=== PATIENT | female | born 1985 | race Caucasian/White ===

== ENCOUNTER 2021-06-13 10:16 | Outpatient (CLI) | payer OTHER, SELFPAY ==
--- NOTE | ~2021-06-13 | XR_ITS ---
EXAMINATION: XR chest 2V DATE: 06/13/2021 10:31 INDICATION: Intermittent dyspnea. TECHNIQUE: Frontal and lateral views of the chest were obtained. COMPARISON: Chest 2 views 02/10/2006 FINDINGS: The chest demonstrates clear lungs without pneumonia, pleural effusion, or pneumothorax. Th e heart size is normal. IMPRESSION: 1. No acute cardiopulmonary disease. Reviewed, dictated and finalized at location A. 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
--- NOTE | 2021-06-14 15:37 | WPDPFTINT ---
PFT Procedure Performed PFT Procedure Performed Spirometry with Pre/Post Bronchodilator Plethysmography (Lung Vol) Diffusing Cap (DLCO) Flow Vol Loop PFT Interpretation Lung volumes were measured with the body plethysmography method. Lung volumes are unremarkable. Spirometry shows normal expiratory flow rates and a normal FEV1 to FVC ratio 76%. Following administration of a bronchodilator there was no significant increase in expiratory flow rates. Lung diffusion capacity is within the normal range at 90% predicted. The flow volume loop is unremarkable. Impression: Spirometry, lung volumes, and lung diffusion capacity all within the normal range.
== END 2021-06-13 10:17 | disposition home or self-care (01) ==
LOC: ANHPFT 10:21
PROVIDERS: PCP Family Medicine; Visit Provider Family Medicine
DX: R06.00 Dyspnea, unspecified (principal); R06.02 Shortness of breath
CPT/HCPCS: 71046; 94060; 94726; 94729

== ENCOUNTER 2023-08-31 22:50 | Emergency (ER) | payer OTHER, SELFPAY ==
[2023-08-31 22:56] VITALS: BP 133/95; PULSE 78; RESP 14; TEMP 36.5; O2SAT 98
--- NOTE | 2023-08-31 23:57 | PC.NURSE ---
Pt approached triage desk and states she is going to leave. pt educated of risks of leaving before seeing provider, verbalized understanding. Pt ambulated out of ED with steady gait in no obvious distress.
== END 2023-09-01 01:34 | disposition left against medical advice (07) ==
LOC: ANHED 09-01 00:56
PROVIDERS: PCP Internal Medicine
DX: R51.9 Headache, unspecified (principal)
CPT/HCPCS: 99199

== ENCOUNTER 2023-09-07 14:35 | Outpatient (CLI) | payer OTHER, SELFPAY ==
--- NOTE | ~2023-09-07 | MR_ITS ---
EXAMINATION: MR brain/brain stem wo/w con DATE: 09/07/2023 15:28 INDICATION: Worsening headache. TECHNIQUE: Magnetic resonance imaging (MRI) of the brain and brainstem was performed without and with 18 mL MultiHance intravenous contrast. COMPARISON: None. FINDINGS: There is no intracranial hemorrhage, acute infarction, or abnormal intracranial mass lesion . The ventricles are normal in size. There is mild mucosal thickening in the paranasal sinuses. There are mucous retention cysts in the maxillary sinuses. The mastoid air cells are normal. The orbits ar e normal. IMPRESSION: 1. Normal brain. Reviewed, dictated and finalized at location A. IMPRESSION: 1. Normal brain.
== END 2023-09-07 14:36 ==
PROVIDERS: PCP Clinical Nurse Specialist; Visit Provider Clinical Nurse Specialist
DX: R51.9 Headache, unspecified (principal)
CPT/HCPCS: 70553; A9577

== ENCOUNTER 2023-12-25 18:07 | Emergency (ER) | payer OTHER, SELFPAY ==
[2023-12-25 18:08] VITALS: BP 106/81; PULSE 92; RESP 16; TEMP 36.6; O2SAT 100
[2023-12-25 19:43] LABS: Basophils Absolute Auto 0.1 K/mm3 (0.0-0.1); Basophils Percent Auto 0.6 % (0.2-1.2); Eosinophils Absolute Auto 0.3 K/mm3 (0-0.3); Hematocrit 42.4 % (37.0-47.0); Hemoglobin 13.9 g/dL (12.0-15.0); Immature Granulocyte Absolute 0.02 K/mm3 (0.00-0.031); Immature Granulocyte Percent A 0.2 % (0-0.5); Lymphocytes Absolute Auto 2.93 K/mm3 (0.9-3.2); Lymphocytes Percent Auto 32.9 % (18.3-44.2); Mean Corpuscular HGB Conc 32.8 g/dl (32-36); Mean Corpuscular Hemoglobin 28.5 pg (26-34); Mean Corpuscular Volume 86.9 fl (80-100); Mean Platelet Volume 9.4 fl (7.4-10.4); Monocytes Absolute Auto 0.6 K/mm3 (0.1-0.6); Monocytes Percent Auto 7.2 % (2.6-8.5); Neutrophils Percent Auto 56.1 % (45.5-73.1); Platelet Count Result 275 k/mm3 (150-375); Red Blood Count 4.88 M/mm3 (4.2-5.4); White Blood Count 8.9 K/mm3 (4.5-10.0)
[2023-12-25 19:54] LABS: Prothrombin Time 13.1 Seconds (11.1-14.7)
[2023-12-25 19:55] LABS: Partial Thromboplastin Time 26.1 Seconds (22.3-36.8)
[2023-12-25 19:56] LABS: Anion Gap 6 mmol/L (4-12); Blood Urea Nitrogen 12 mg/dL (7-17); Calcium 9.2 mg/dL (8.4-10.2); Carbon Dioxide 30 mmol/L (22-30); Chloride 104 mmol/L (98-107); Estimated CRCL calculation 86 ml/min; Estimated Glomerular Filt Rate > 60; Glucose 95 mg/dL (65-110); Potassium 4.1 mmol/L (3.4-5.0); Sodium 140 mmol/L (137-145)
[2023-12-25 19:58] LABS: D Dimer 0.54 ug/mL (<0.48)
--- NOTE | 2023-12-25 20:01 | ED.GENADULT ---
HPI - General Adult General Chief complaint: Extremity Problem,Nontraumatic Stated complaint: R arm pain Time Seen by Provider: 12/25/23 19:05 History of Present Illness HPI narrative: Patient 38-year-old female who presents emergency department with chief complaint of right arm discomfort. Patient reports last several days she has noticed that her veins are little bit more pronounced in her antecubital fossa on the right arm the patient states that she is concerned that she may have a blood clot and decided to come to the emergency department. The patient denies chest pain denies shortness of breath denies recent trauma to the extremity. The patient reports no prior history of clotting disorder no prior history of thromboembolic event. Related Data Allergies Allergy/AdvReac Type Severity Reaction Status Date / Time No Known Allergies Allergy Verified 12/25/23 18:10 Review of Systems Review of Systems: A 10 system review of systems was completed on the patient and is negative except for what is stated in the HPI. Nursing and ancillary documentation was reviewed. [facility] Past Medical History Medical History Anxiety anxiety Family History Family History Father Heart disease Mother Depression Sibling Asthma Grandparent Alcoholism Cancer Breast cancer Malignant neoplasm of prostate Social History Social History Smoking status: Never smoker Alcohol intake: never Substance use: never Lack of Transportation: No Lack of Food: Never True Current Housing: I Have Housing Concerned About Future Housing: No Difficulty Paying Gas/Electric Bills: No Difficulty Paying for Meds: No Currently Unemployed: No Education: Bachelor's Degree Difficulty w/ Childcare or Family Care: No Living arrangements: with family Occupation/Education: occupation Additional occupation/education comments: [employer] Gender identity (if verbalized by the patient): Female Sexual Orientation (if Verbalized by the Patient): Straight or Heterosexual Exam Narrative: GENERAL: Well-appearing, well-nourished, and in no acute distress. HEAD: Normocephalic, atraumatic. EYES: PERRLA and EOMI. ENT: Nares clear, no rhinorrhea or epistaxis. Mucous membranes moist. NECK: Supple. CHEST: Clear to auscultation. No respiratory distress. HEART: Regular rate and rhythm. No murmur heard. Normal peripheral pulses. ABDOMEN: Soft, nontender, nondistended, normal active bowel sounds. EXTREMITIES: Normal range of motion. No edema. There is a slight increase in prominence of the veins in the antecubital fossa. SKIN: Warm, dry, no rash. NEURO: No focal deficits. Alert and oriented x3. PSYCH: Normal mood and affect. Course Vital Signs Vital signs: Vital Signs Temperature 36.6 C 12/25/23 18:08 Pulse Rate 92 12/25/23 18:08 Respiratory Rate 16 12/25/23 18:08 Blood Pressure 106/81 12/25/23 18:08 Pulse Oximetry 100 12/25/23 18:08 Oxygen Delivery Room Air 12/25/23 18:08 Temperature 36.6 C 12/25/23 18:08 Pulse Rate 92 12/25/23 18:08 Respiratory Rate 16 12/25/23 18:08 Blood Pressure 106/81 12/25/23 18:08 Pulse Oximetry 100 12/25/23 18:08 Oxygen Delivery Room Air 12/25/23 18:08 Medical Decision Making [facility] Narrative Medical decision making narrative: Differential diagnosis includes DVT, musculoskeletal pain Laboratory studies were patient showed normal CBC normal CMP D-dimer was slightly elevated at 0.54 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
[2023-12-25] MEDS: ENOXAPARIN 100 MG/ML SYRINGE 86 MG SUB-Q (20:24)
[2023-12-25 20:27] VITALS: BP 110/84; PULSE 81; RESP 15; O2SAT 100
== END 2023-12-25 20:28 | disposition home or self-care (01) ==
PROVIDERS: Emergency Provider Emergency Medicine; PCP Clinical Nurse Specialist
DX: M79.601 Pain in right arm (principal)
CPT/HCPCS: 36415; 80048; 85025; 85380; 85610; 85730; 96372; 99283; J1650

== ENCOUNTER 2023-12-26 07:33 | Outpatient (CLI) | payer OTHER, SELFPAY ==
--- NOTE | ~2023-12-26 | US_ITS ---
EXAMINATION: US venous doppler UE RT DATE: 12/26/2023 08:06 INDICATION: Right upper limb paresthesias of skin TECHNIQUE: Grayscale images without and with compression and Doppler images of the right upper extrem ity veins were obtained. COMPARISON: None. FINDINGS: The right internal jugular vein, subclavian vein, axillary vein, brachial vein, basilic vein, cephali c vein, radial vein, and ulnar vein are patent. There is noncompressible thrombosis of a superficial vein at the right antecubital fossa IMPRESSION: 1. Thrombosis of a superficial vein at the right antecubital fossa. No other thrombosis of the deep v eins of the right upper extremity. Reviewed, dictated and finalized at location A. IMPRESSION: 1. Thrombosis of a superficial vein at the right antecubital fossa. No other th rombosis of the deep veins of the right upper extremity.
== END 2023-12-26 07:34 | disposition home or self-care (01) ==
LOC: ANHIMG 07:37
PROVIDERS: PCP Clinical Nurse Specialist; Visit Provider Emergency Medicine
DX: R20.2 Paresthesia of skin (principal); I82.611 Acute embolism and thrombosis of superficial veins of right upper extremity
CPT/HCPCS: 93971

== ENCOUNTER 2023-12-28 11:01 | Outpatient (CLI) | payer OTHER, SELFPAY ==
--- NOTE | ~2023-12-28 | US_ITS ---
RIGHT UPPER EXTREMITY VENOUS ULTRASOUND Ordering provider: TOÑO Mcelroy History: . M79.89 - Other specified soft tissue disorders . Comparison: None. FINDINGS: --JUGULAR: Patent and free of thrombus. Normal compressibility, phasic flow and augmentation. --SUBCLAVIAN: Patent and free of thrombus. Normal compressibility, phasic flow and augmentation. --AXILLARY: Patent and free of thrombus. Normal compressibility, phasic flow and augmentation. --BRACHIAL: Patent and free of thrombus. Normal compressibility, phasic flow and augmentation. --CEPHALIC: Thrombosed. --BASILIC: Thrombosed. --RADIAL: Patent and free of thrombus. Normal compressibility, phasic flow and augmentation. --ULNAR: Patent and free of thrombus. Normal compressibility, phasic flow and augmentation. IMPRESSION: Thrombosed cephalic and basilic veins. Other veins are unremarkable. Reviewed, dictated and finalized at location A.
== END 2023-12-28 11:02 ==
PROVIDERS: PCP Clinical Nurse Specialist; Visit Provider Clinical Nurse Specialist
DX: M79.89 Other specified soft tissue disorders (principal)
CPT/HCPCS: 93971

== ENCOUNTER 2024-01-04 10:19 | Outpatient (CLI) | payer OTHER, SELFPAY ==
--- NOTE | ~2024-01-04 | US_ITS ---
RIGHT UPPER EXTREMITY VENOUS ULTRASOUND Ordering provider: TOÑO Mcelroy History: . M79.89 - Other specified soft tissue disorders . Comparison: None. FINDINGS: --JUGULAR: Patent and free of thrombus. Normal compressibility, phasic flow and augmentation. --SUBCLAVIAN: Patent and free of thrombus. Normal compressibility, phasic flow and augmentation. --AXILLARY: Patent and free of thrombus. Normal compressibility, phasic flow and augmentation. --BRACHIAL: Patent and free of thrombus. Normal compressibility, phasic flow and augmentation. --CEPHALIC: Thrombosed. --BASILIC: Thrombosed. --RADIAL: Patent and free of thrombus. Normal compressibility, phasic flow and augmentation. --ULNAR: Patent and free of thrombus. Normal compressibility, phasic flow and augmentation. IMPRESSION: THROMBOSED CEPHALIC AND BASILIC VEINS. OTHER VEINS ARE UNREMARKABLE. Reviewed, dictated and finalized at location A.
== END 2024-01-04 10:20 ==
LOC: GOSHIMG 10:21
PROVIDERS: PCP Clinical Nurse Specialist; Visit Provider Clinical Nurse Specialist
DX: M79.89 Other specified soft tissue disorders (principal)
CPT/HCPCS: 93971